=== PATIENT | male | born 1950 | race Caucasian/White ===

== ENCOUNTER 2017-01-31 15:29 | Emergency (ER) | payer MEDICARE, OTHER ==
[~2017-01-31] VITALS: Wt 106.0 kg
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
[2017-01-31] MEDS ORDERED: CEPH-443 PO (18:41)
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
[2017-01-31 18:52] VITALS: BP 148/77; PULSE 88; RESP 16; TEMP 98.6
== END 2017-01-31 18:53 | disposition home or self-care (01) ==
LOC: FTE 15:29
DX: S09.90XA Unspecified injury of head, initial encounter (principal); V89.2XXA Person injured in unspecified motor-vehicle accident, traffic, initial encounter
CPT/HCPCS: 70450; 70480

== ENCOUNTER 2017-09-05 02:20 | Emergency (ER) | payer MEDICARE, OTHER ==
[~2017-09-05] VITALS: Ht 177.8 cm; Wt 100.2 kg
[~2017-09-05 02:20] MED LIST: CEPH-443 PO
[2017-09-05 02:22] VITALS: Ht 177.8 cm; Wt 100.2 kg
--- NOTE | 2017-09-05 03:09 | ERD ---
ER Documentation Chief Complaint Chief Complaint allergic Rxn after taking motrin & prednisone 4 hrs ago- body swelling HPI This 66 year male patient ports history of angioedema patient does not give a fluid history, presenting with a raised circumscribed warm erythremic plaque on right antecubital space, right hand edematous, erythremic, with purpura, open oozing skin tears, patient reports that he has been poking his hand with a needle to relieve pressure. Is reporting a allergic reaction taking routine medication. Patient has no eyelid swelling, tongue swelling, or lip swelling. ROS All systems reviewed and are negative except as per history of present illness. Medications Home Meds Active Scripts Cephalexin* (Keflex*) 500 Mg Capsule, 500 MG PO QID for 7 Days, CAP Prov:ABHINAV JOHNSON MD 01/31/17 Allergies Allergies: Coded Allergies: No Known Allergy (Unverified , 07/12/14) PMhx/Soc Hx Alcohol Use: No Hx Substance Use: No Hx Tobacco Use: No Smoking Status: Never smoker Physical Exam Vitals Vital Signs Date Time Temp Pulse Resp B/P Pulse Ox O2 Delivery O2 Flow Rate FiO2 09/05/17 05:15 81 18 125/72 99 Room Air 09/05/17 02:22 97.4 68 20 139/77 97 Vitals stable, triage notes reviewed Physical Exam Const: Nourished, well-appearing, well-hydrated 66-year-old male patient no acute distress Head: Atraumatic Eyes: Normal Conjunctiva eyelid swelling ENT: Normal External Ears, Nose and Mouth., No tongue swelling or lip swelling Neck: Resp: Respirations even and unlabored clear to auscultation bilaterally no rales wheezes or Cardio: Regular rate and rhythm, no murmurs Abd: Skin: Left antecubital space presents with an erythemic plaque, warm to touch , left hand erythemic, son with purpura and open oozing lesions, self-inflicted with a needle per patient report. Back: Ext: Neur: Awake and alert Psych: Normal Mood and Affect Results 24 hrs Current Medications Medications (Trade) Dose Ordered Sig/Kaylee Route PRN Reason Start Time Stop Time Status Last Admin Dose Admin Ceftriaxone Sodium (Rocephin) 1 gm ONCE ONCE IM 09/05/17 04:30 09/05/17 04:31 DC 09/05/17 05:08 Diphenhydramine HCl (Benadryl) 25 mg ONCE ONCE PO 09/05/17 04:30 09/05/17 04:31 DC Procedures/MDM PROCEDURE: XR Hand. CLINICAL INDICATION: erythema TECHNIQUE: AP oblique and lateral views of the right hand were obtained. COMPARISON: No prior studies are available for comparison. FINDINGS: There is normal mineralization. No acute fracture or dislocation is seen. There are no significant degenerative changes. There is mild soft tissue swelling of the thumb. IMPRESSION: Right thumb soft tissue swelling. No acute osseous abnormality. Electronically viewed and signed by Kenyon Negron, Physician on 09/05/2017 06: 04 This 66-year-old male patient presents to the emergency department for evaluation of what he believes is angioedema, patient has no current symptoms of angioedema, there is no eyelid swelling, lip swelling, tongue swelling, difficulty breathing, patient appears to have a infected dermatitis on his right arm, plaque noted in the antecubital space, right hand edematous, erythremic, thumb with a purpura appearing plaque oozing serosanguineous drainage status post self-inflicted puncture wounds have no suspicion of typhus or septicemia, a right hand x-ray will be obtained to rule out any evidence of osteomyelitis, patient treated with 1 g of Rocephin intramuscularly, Tylenol Benadryl. Plan to discharge patient home with betamethasone topical applied to right antecubital space, Keflex 500 mg 1 tab p.o. QID 10 days, Bactrim double strength 1 tab p.o. twice daily 7 days , bacitracin to right thumb, follow-up with primary physician for full evaluation of symptoms. Patient is stable with no new complaints during ER course, clinically there is no current evidence to suggest osteomyelitis, meningitis, anaphylaxis, angioedema, hives, respiratory distress or any other emergent condition appearing to require further evaluation or hospitalization. I feel the patient is stable for discharge at this time. I have discussed results, examination findings, the treatment plan with the patient and family present prior to discharge. Indications for emergent reevaluation, side effects of medication were also discussed. All questions were answered. Patient verbalizes understanding and agrees with plan of care. Departure Diagnosis: Primary Impression: Dermatitis Additional Impression: Staph skin infection Patient Instructions: Methicillin-Resistant Staphylococcus aureus (MRSA) Infection, Staph Infection (non-MRSA) Additional Instructions: Thank you for for coming to [facility] for your care today. Please ask your nurse or provider if you have questions about your care today and do not leave until all your questions have been answered. Please use any medications given as directed and follow-up with your doctor (or the doctor you were referred to) in the next 2-3 days. If you do not have a primary care doctor you may follow up at the [facility] (listed below). You may also use motrin and tylenol as needed for fever and/or pain unless instructed otherwise by your provider or nurse. Indications for more urgent follow-up have been discussed, but you may return to the Emergency Department at ANY time for any worrisome or worsening symptoms. If you have abdominal pain, please know that no test or exam you received is perfect and you should follow up within 8 hours for continued pain. If you had any imaging studies today, such as an X-Ray or CT Scan, these studies will be reviewed later by a radiologist. You will be called if there are important findings that were not identified today, so make sure the contact information you provided at registration is correct. If you received any narcotic pain control medicine today, such as Vicodin, Morphine or Dilaudid, your coordination and judgment may be affected for a number of hours. Please do not drive or operate heavy machinery, and you may want someone to assist you at home. If you were given a prescription for narcotic medication, be aware that it is very addictive- use sparingly and only if necessary. All times TIM GRIJALVA Sep 05, 2017 03:09
[2017-09-05] MEDS ORDERED: CEFTRIAXONE 1 GM INJ IM ONE (04:30)
[2017-09-05] MEDS ORDERED: DIPHENHYDRAMINE 25 MG CAP PO ONE (04:30)
[2017-09-05 05:15] VITALS: BP 125/72; PULSE 81; RESP 18
--- NOTE | 2017-09-05 06:05 | RADRPT ---
PROCEDURE: XR Hand. CLINICAL INDICATION: erythema TECHNIQUE: AP oblique and lateral views of the right hand were obtained. COMPARISON: No prior studies are available for comparison. FINDINGS: There is normal mineralization. No acute fracture or dislocation is seen. There are no significant degenerative changes. There is mild soft tissue swelling of the thumb. IMPRESSION: Right thumb soft tissue swelling. No acute osseous abnormality. Physician Alicia Date Time Electronically viewed and signed by Physician Alicia on 09/05/2017 06:04 GONZALO/
[2017-09-05] MEDS ORDERED: CEPH-443 PO (06:25)
[2017-09-05] MEDS ORDERED: NEOM28.33 TP (06:29)
== END 2017-09-05 07:05 | disposition home or self-care (01) ==
LOC: FTE 02:20
DX: L30.9 Dermatitis, unspecified (principal); B95.8 Unspecified staphylococcus as the cause of diseases classified elsewhere
CPT/HCPCS: 73130; 96372; 99284; J0696

== ENCOUNTER 2017-09-15 06:27 | Emergency (ER) | payer MEDICARE, OTHER ==
[~2017-09-15] VITALS: Ht 180.3 cm; Wt 111.1 kg
[~2017-09-15 06:27] MED LIST changes: +NEOM28.33 TP
[2017-09-15 06:28] VITALS: Ht 180.3 cm; Wt 111.1 kg
[2017-09-15] MEDS ORDERED: DEXAMETHASONE 10 MG/ML 1 ML INJ IM ONE (07:00)
[2017-09-15] MEDS ORDERED: DIPHENHYDRAMINE 2.5 MG/ML 5ML CUP PO ONE (07:00)
[2017-09-15] MEDS ORDERED: DIPHENHYDRAMINE 25 MG CAP PO ONE (07:00)
[2017-09-15] MEDS ORDERED: ALBUTEROL 0.083% (NEB) 2.5 MG/3 ML AMP HHN STA (08:07)
[2017-09-15] MEDS ORDERED: EPINEPHrine 1 MG INJ SC STA (08:07)
[2017-09-15] MEDS ORDERED: PRED50TA PO (08:49)
[2017-09-15 09:29] VITALS: BP 121/73; PULSE 74; RESP 18; TEMP 98.3
--- NOTE | 2017-09-15 10:44 | ERD ---
ER Documentation Chief Complaint Chief Complaint Possible allergic reaction from Motrin ingestion / facial swelling HPI This is a 66-year-old male presenting to emergency department for facial swelling and possible allergic reaction. Patient states last night he took Advil and Keflex. Patient states he woke up this morning with right-sided facial swelling. No shortness of breath or difficulty breathing. No wheezing or cough. No difficulty swallowing or drooling. No fevers or chills. Patient states he has recurrent allergic reaction episodes and usually takes oral prednisone. Patient has been seen by retail wireless sales representative for this. ROS All systems reviewed and are negative except as per history of present illness. Medications Home Meds Active Scripts Prednisone* (Prednisone*) 50 Mg Tablet, 50 MG PO DAILY, #5 TAB Prov:SALLY LOPEZ NP 09/15/17 Neomycin Cali/Bacitrac Zn/Poly (Neosporin Ointment) 28.3 Gm Oint...g., 28.3 GM TP BID for 3 Days Prov:RUDI,TIM 09/05/17 Cephalexin* (Keflex*) 500 Mg Capsule, 500 MG PO QID for 10 Days, CAP Prov:RUDI,TIM 09/05/17 Cephalexin* (Keflex*) 500 Mg Capsule, 500 MG PO QID for 7 Days, CAP Prov:ABHINAV JOHNSON MD 01/31/17 Allergies Allergies: Coded Allergies: No Known Allergy (Unverified , 07/12/14) PMhx/Soc Medical and Surgical Hx: pt denies Medical Hx, pt denies Surgical Hx Hx Alcohol Use: No Hx Substance Use: No Hx Tobacco Use: No Physical Exam Vitals Vital Signs Date Time Temp Pulse Resp B/P Pulse Ox O2 Delivery O2 Flow Rate FiO2 09/15/17 09:29 98.3 74 18 121/73 95 09/15/17 08:30 79 20 96 21 09/15/17 06:28 96.6 54 20 145/80 97 Physical Exam Const: No acute distress, alert Head: Atraumatic , left-sided lip and cheek facial swelling. no erythema or lesions. No facial rash. Eyes: Normal Conjunctiva ENT: Normal External Ears, Nose and Mouth. Neck: Full range of motion..~ No meningismus. Resp: Clear to auscultation bilaterally. No wheezing, rhonchi or crackles. No stridor or labored breathing. Patient is talking in complete sentences. Cardio: Regular rate and rhythm, no murmurs Abd: Soft, non tender, non distended. Normal bowel sounds Skin: Scattered wheals to chest and bilateral upper extremities. No weeping or drainage. Back: No midline or flank tenderness Ext: No cyanosis, or edema Neur: Awake and alert Psych: Normal Mood and Affect Results 24 hrs Current Medications Medications (Trade) Dose Ordered Sig/Kaylee Route PRN Reason Start Time Stop Time Status Last Admin Dose Admin Dexamethasone (Decadron) 10 mg ONCE ONCE IM 09/15/17 07:00 09/15/17 07:01 DC 09/15/17 07:00 Diphenhydramine HCl (Benadryl) 25 mg ONCE ONCE PO 09/15/17 07:00 09/15/17 07:00 DC Diphenhydramine HCl (Benadryl Liquid Cup) 25 mg ONCE ONCE PO 09/15/17 07:00 09/15/17 07:01 DC 09/15/17 07:04 Epinephrine (EPINEPHrine) 0.3 mg ONCE STAT SC 09/15/17 08:07 09/15/17 08:10 DC 09/15/17 08:19 Albuterol (Proventil 0.083% (Neb)) 5 mg ONCE STAT HHN 09/15/17 08:07 09/15/17 08:10 DC 09/15/17 08:29 Procedures/MDM MDM: This is a 66-year-old male presenting to emergency department for facial swelling and possible allergic reaction since last night. Patient given Decadron, Benadryl and epinephrine while in ED. No signs or symptoms of respiratory distress. No difficulty swallowing or drooling. Patient is talking in complete sentences. Vital signs are stable. Consulted Dr. Winslow who also examined patient. We agree that patient is appropriate for outpatient management with oral prednisone. Low suspicion for anaphylactic reaction. Patient likely has allergic reaction. Patient is appropriate for outpatient management only given prescription for prednisone. Instructed patient to follow-up with retail wireless sales representative or primary care provider in the next 24-48 hours for reassessment and additional management. Return to ED for any high fever, chest pain, difficulty breathing, shortness breath, wheezing, vomiting, diarrhea, abdominal pain or any new or worsening symptoms. Patient verbalizes understanding. All questions answered at discharge. Disclaimer: Inadvertent spelling and grammatical errors are likely due to EHR/ dictation software use and do not reflect on the overall quality of patient care. Also, please note that the electronic time recorded on this note does not necessarily reflect the actual time of the patient encounter. Departure Diagnosis: Primary Impression: Allergic reaction Encounter type: subsequent encounter Qualified Code: T78.40XD - Allergic reaction, subsequent encounter Condition: Stable Patient Instructions: Allergic Reaction, Other (General) Referrals: [facility] YOU HAVE RECEIVED A MEDICAL SCREENING EXAM AND THE RESULTS INDICATE THAT YOU DO NOT HAVE A CONDITION THAT REQUIRES URGENT TREATMENT IN THE EMERGENCY DEPARTMENT. FURTHER EVALUATION AND TREATMENT OF YOUR CONDITION CAN WAIT UNTIL YOU ARE SEEN IN YOUR DOCTORS OFFICE WITHIN THE NEXT 1-2 DAYS. IT IS YOUR RESPONSIBILITY TO MAKE AN APPOINTMENT FOR FOLOW-UP CARE. IF YOU HAVE A PRIMARY DOCTOR --you should call your primary doctor and schedule an appointment IF YOU DO NOT HAVE A PRIMARY DOCTOR YOU CAN CALL OUR PHYSICIAN REFERRAL HOTLINE AT IF YOU CAN NOT AFFORD TO SEE A PHYSICIAN YOU CAN CHOSE FROM THE FO[facility] [address] [facility]. [facility] [address] [facility] [address] [facility] [address] [facility]. [facility] [address] [facility]. [facility]. [address] [facility] YOU HAVE RECEIVED A MEDICAL SCREENING EXAM AND THE RESULTS INDICATE THAT YOU DO NOT HAVE A CONDITION THAT REQUIRES URGENT TREATMENT IN THE EMERGENCY DEPARTMENT. FURTHER EVALUATION AND TREATMENT OF YOUR CONDITION CAN WAIT UNTIL YOU ARE SEEN IN YOUR DOCTORS OFFICE WITHIN THE NEXT 1-2 DAYS. IT IS YOUR RESPONSIBILITY TO MAKE AN APPOINTMENT FOR FOLOW-UP CARE. IF YOU HAVE A PRIMARY DOCTOR --you should call your primary doctor and schedule and appointment IF YOU DO NOT HAVE A PRIMARY DOCTOR YOU CAN CALL OUR PHYSICIAN REFERRAL HOTLINE AT . IF YOU CAN NOT AFFORD TO SEE A PHYSICIAN YOU CAN CHOSE FROM THE FOLLOWING [facility] IN[facility]IONS: [facility] [address] [place] [address] [facility] [address] [place] [address] [facility] [address] [place] [address] Additional Instructions: Call your primary care doctor TOMORROW for an appointment during the next 2-3 days.See the doctor sooner or return here if your condition worsens before your appointment time. Return to ED for any high fever, chest pain, difficulty breathing, shortness breath, wheezing, vomiting, diarrhea, abdominal pain or any new or worsening symptoms. SALLY LOPEZ NP Sep 15, 2017 10:44
== END 2017-09-15 09:45 | disposition home or self-care (01) ==
LOC: FTE 06:27
DX: R60.0 Localized edema (principal)
CPT/HCPCS: 94664; 96372; 99284; J0171; J1100